=== PATIENT | female | born 1940 | race Caucasian/White ===

== ENCOUNTER 2016-07-22 02:03 | Day surgery (SDC) | payer MEDICARE ==
[~2016-07-22] VITALS: Ht 166.4 cm; Wt 74.8 kg
[2016-07-22] VITALS (12 sets, daily range): BP systolic 104–132; BP diastolic 56–83; PULSE 66–80; RESP 14–20; O2SAT 96–97
[~2016-07-22 02:03] MED LIST: ASPI-973 PO; CALC-140 PO; CHOL200025 PO; LORA0.5T PO; METO-272 PO; MULT1CAP33 PO
--- NOTE | 2016-07-22 07:07 | NUR ---
Patient admitted for SVT ablation with Dr Constantino. She is accompanied by her .
[2016-07-22 07:10] LABS: BASOPHILS % (AUTO) 0.4 % (0-3); EOSINOPHILS % (AUTO) 6.2 % (0-5); MONOCYTES % (AUTO) 9.4 % (4-12); Mean Corpuscular Hemoglobin 32.2 pg (27.0-35.0); Mean Corpuscular Volume 95.7 fL (81-100); NEUTROPHILS % (AUTO) 64.4 % (40-74); Platelet Count 156 bil/L (150-400)
[2016-07-22 07:32] LABS: INR 0.95 ratio
[2016-07-22] MEDS ORDERED: Heparin 5,000 Units/500 mL NS Premix IV ONE (07:52)
[2016-07-22] MEDS ORDERED: 0.9% Sodium Chloride 1,000 ML ONE (07:52)
[2016-07-22] MEDS ORDERED: Heparin 1,000 Unit/mL 10 mL Inj ONE (07:52)
[2016-07-22] MEDS ORDERED: fentaNYL-PF 50 mCg/mL 2 mL Inj ONE (08:34)
[2016-07-22] MEDS ORDERED: Ondansetron 2 mg/mL 2 mL Inj IVPUSH PRN (10:50)
--- NOTE | 2016-07-22 11:41 | PROCED ---
[address] [address] PROCEDURE NOTE PATIENT: DAVIE YE : 1940 MR#: [id number] ADMIT: 07/22/2016 JOB ID: [id number] DATE OF SERVICE: 07/22/2016 PREOPERATIVE DIAGNOSIS(ES): Paroxysmal supraventricular tachycardia, drug refractory. POSTOPERATIVE DIAGNOSIS(ES): Atrioventricular edwige re-entry tachycardia. PROCEDURES PERFORMED: 1. Comprehensive electrophysiology study. 2. Three-dimensional electroanatomic mapping using the CARTO 3 system. 3. Slow pathway modification (atrial arrhythmia ablation; supraventricular tachycardia ablation). 4. Fluoroscopy. SURGEON: Grab Driver: Pablito Constantino MD, electrophysiology attending. RETAIL PERSONAL BANKER: John Byrne. ANESTHESIA: Gentle dosing of Versed and fentanyl was utilized for an appropriate level of sedation. INDICATION: The patient is a pleasant 76-year-old woman with a structurally normal heart and drug refractory symptomatic supraventricular tachycardia. After discussion of the risks and benefits of catheter based mapping and ablation, she opted to proceed. PROCEDURAL DESCRIPTION: Following informed signed consent, the patient was taken to the EP laboratory in the fasting nonsedated state. The patient was prepped and draped in the usual sterile fashion. The bilateral groins were infiltrated with 1% lidocaine. Then, using the modified Seldinger technique, one 8- and one 7-Frisian sheath was inserted into the right femoral vein. Attempts to access the left femoral vein allowed for access but the J-guidewire would not pass through. I placed a micropuncture sheath over the 0.035 wire and hand-injected contrast and found that the left femoral vein occluded prior to the convergence to the iliac and there was collateralization to the right. We therefore cannot utilize this side. Manual pressure was held for hemostasis on that side. I gained 2 more were access points on the right, in the right femoral vein, then placed two additional 6-Frisian sheaths. Through the sheath a Pam quadripolar catheter was advanced to the RV apex, a CRD2 quadripolar catheter was advanced to the His position, and a LiveWire deflectable catheter was advanced to the right atrium and into the coronary sinus with poles 1-10 in the coronary sinus and poles 9 and 10 at the os. A comprehensive electrophysiology study was undertaken with right atrial pacing recording, right ventricular pacing recording, His bundle recording, and left atrial pacing recording via the coronary sinus catheter. Retrograde conduction showed a concentric atrial activation pattern. Antegrade conduction showed an antegrade jump and ultimately easily inducible clinical tachycardia. This was a regular narrow tachycardia at a cycle length of 380 msec with a VA time of 0 msec. Atrial activation was earliest at the septum. Initiation was with an antegrade jump. RV apical entrainment led to a long post pacing interval minus tachycardia cycle length and a VAV response. Taken together this data was consistent with AV edwige reentry tachycardia. Slow pathway modification was therefore performed through the atrium sheath. The DF bidirectional 4 mm non-irrigated ablation catheter was advanced into the right atrium and used to create a three-dimensional electroanatomic map of the right atrium, tricuspid anulus, and triangle of Rodriguez. Ablation lesions were placed at the base of the triangle of Rodriguez in the region of the slow pathway. Ultimately the last two lesions led to conducted junctional beats which were slow. Aggressive induction maneuvers were therefore undertaken for 20 minutes with single and double extrastimuli as well as burst pacing. The patient had an occasional antegrade jump with a single echo but no more than one echo and no more inducible clinical tachycardia. We therefore concluded our procedure. All catheters and sheaths were removed. Manual pressure was held for hemostasis. The patient was transferred to the [facility] for monitoring, bedrest, and discharge. COMPLICATIONS: None. BLOOD LOSS: Negligible. FINDINGS: 1. Baseline rhythm is sinus with an RR interval of 720 msec, a OR 190 msec, QRS 76 msec, QT 351 msec. 2. Intracardiac intervals: AH interval 88 msec, HV 56 msec. Post ablation those intervals are 91 msec and 58 msec, respectively. 3. Retrograde conduction: Atrial activation was concentric. VA Wenckebach is seen at 310 msec. VERP is 240 msec at a [address] and VAERP is less or equal to this value. 4. Antegrade conduction: AV Wenckebach at 310 msec. Fast pathway ERP is 280 msec at a [address]. Atrial ERP is 240 msec at a [address] 5. Inducible clinical AV edwige re-entry tachycardia as described above status post slow pathway modification with only rare single echo was seen. IMPRESSION: Successful slow pathway modification for AV edwige reentrant tachycardia. PLAN: 1. Bed rest x4 hours. 2. Discontinue beta blockade. 3. Resume daily aspirin. 4. Follow up with Jose Juan Palmer PA-C in clinic in four weeks. ATTENDING STATEMENT: Pablito Constantino MD, electrophysiology attending, was present for and supervised/performed all aspects of this procedure.
[2016-07-22] MEDS ORDERED: CALC600T12 PO ×2 (13:20)
--- NOTE | 2016-07-22 15:33 | NUR ---
Patient out of bed at 15:00, ambulatory to bathroom. Right groin remains stable.Discharge instructions reviewed with patient and spouse, she is discharged ambulatory with her spouse to drive.
== END 2016-07-22 23:59 | disposition home or self-care (01) ==
LOC: SOUO 02:03
PROVIDERS: ATTEND Internal Medicine Cardiovascular Disease
DX: I47.1 Supraventricular tachycardia (principal); I10 Essential (primary) hypertension; Z79.82 Long term (current) use of aspirin
CPT/HCPCS: 36415; 80048; 85025; 85610; 93005; 93613; 93621; 93653; C1730; C1731; C1769; C1893; J1644; J2250; J3010; J7030; Q9967